=== PATIENT | female | born 1970 | race Caucasian/White ===

== ENCOUNTER 2023-10-16 19:51 | Emergency (ER) | payer OTHER, SELFPAY ==
[2023-10-16 19:59] VITALS: BP 127/60
[2023-10-16 20:15] LABS: % Basophils 0.8 % (0-2); % Eosinophils 2.5 % (0-6); % Monocytes 5.7 % (1.7-9.3); Absolute Eosinophils 0.1 10^3/uL (0-0.7); Absolute Lymphocytes 2.7 10^3/uL (1.2-3.4); Absolute Monocytes 0.3 10^3/uL (0.1-0.6); Hematocrit 38.7 % (37.0-47.0); Hemoglobin 13.7 g/dL (12.0-16.0); Mean Corp Hgb Conc. 35.4 g/dL (33.0-37.0); Mean Corpuscular Hgb 31.2 pg (27.0-31.0); Mean Corpuscular Volume 88.2 fL (81.0-99.0); Mean Platelet Volume 10.7 fL (7.4-10.4); Nucleated Red Blood Cells % 0 %; Platelet Count 162 10^3/uL (130-400); Red Blood Cell Count 4.39 10^6/uL (4.20-5.40); Red Cell Dist. Width 12.3 % (11.5-14.5); White Blood Cell Count 5.1 10^3/uL (4.8-10.8)
[2023-10-16 20:31] LABS: HCG, Serum Qualitative Screen Negative
[2023-10-16 20:36] LABS: ALT (SGPT) 18 U/L (0-35); AST (SGOT) 24 U/L (14-36); Albumin 4.2 g/dl (3.5-5.0); Alkaline Phosphatase 69 U/L (38-126); Blood Urea Nitrogen 16 mg/dl (7-17); Calcium 9.6 mg/dl (8.4-10.2); Carbon Dioxide 26 mmol/L (22-30); Chloride 103 mmol/L (98-107); Glucose 95 mg/dl (70-99); Potassium 3.5 mmol/L (3.5-5.1); Sodium 138 mmol/L (135-145); Total Bilirubin 0.7 mg/dl (0.2-1.3); Total Protein 6.9 g/dl (6.3-8.2); eGFR > 60.00
[2023-10-16 20:45] LABS: Troponin I < 0.012 ng/ml
[2023-10-16 21:05] VITALS: BMI 21.9
[2023-10-16 21:07] VITALS: BP 115/74
--- NOTE | 2023-10-16 21:39 | ED.GENMED ---
History of Present Illness
General
Chief Complaint: Chest Pain
Source: patient
Exam Limitations: none
Time Seen by Provider: 10/16/23 20:58
Nursing documentation reviewed up to this point in time: agreed with
Travel History
Have you had any contact with someone who has COVID-19?: No
Do you have any symptoms of coronavirus? Fever > 100 degrees, chills, cough, shortness of breath, sore throat, loss of taste or smell, muscle aches, or headache?: No
History of Present Illness
History of Present Illness:
52-year-old female with 3 weeks of palpitations and irregular heartbeats, initially no chest pain or shortness of breath no syncope, takes no meds, she tells me she had Derick's as a teenager had a heart attack at age 37 all of which is improved
with natural diet she works at a [employer] facility, she is been doing some deep breathing exercises with improvement in her symptoms, tonight had some pressure across her chest, also tells me she had lupus earlier in life, she had
saline breast implants that were removed years ago,
Has been feeling fine since has been here, no episodes of irregular heartbeats
Past History
Past History
ED Past Medical History: CAD, Hypothyroidism and Other (Lupus earlier in life)
ED Past Surgical History: Other (She had saline breast implants removed years ago)
Social History
Tobacco: Non-smoker
Alcohol: None
Drug: None
Personal:
Living: with family
Employment: Employed
Review of Systems
Review of Systems
All Other Systems: Not applicable
Constitutional: Reports fatigue; Denies fever
EENT: Reports no symptoms
Respiratory: Denies cough or trouble breathing
Cardiac: Reports chest pain and palpitations; Denies diaphoresis or syncope
ABD/GI: Reports no symptoms
: Reports no symptoms
Musculoskeletal: Reports no symptoms
Skin: Reports no symptoms
Neurological: Reports dizzy and weakness
Psychiatric: Reports anxiety; Denies depression, suicidal or hallucinations
Phy Exam
Physical Exam
Physical Exam:
Physical Exam
General: no apparent distress, not acutely ill
Neck: No jaundiced no obvious goiter
Heart: s1/s2 regular rate and rhythm, no murmur. equal radial pulses.
Lungs: no acute respiratory distress. clear bilaterally
Abdomen: Not tender
Neuro: alert and oriented. no focal neurological deficits
Skin: no rash
Psychiatric: well kept. interactive and cooperative
Extremities: no edema. no calf tenderness.
Scores
Heart Score for Chest Pain Patients
STEMI patient?: No
History: Slightly or Non-Suspicious
ECG: Normal
Age: </= 45 years
Risk Factors: >/= 3 Risk Factors or History of CAD
Troponin: </= Normal Limit
Heart Score for Chest Pain Patients: 2
Heart Score Risk: 2.5% MACE over next 6 weeks
Course
Orders/Labs/Results
Orders:
Orders
10/16/23 19:52
Electrocardiogram (*1) Urgent
Reason for Study: Chest Pain
Cardiac Monitoring- Treatment ONCE
EKG- Treatment ONCE
IV Insert/Care/Rem.- Treatment PRN
Test Result ONCE
O2 Therapy [RESP] Urgent
Titrate/Wean O2 to maintain O2 sat greater than (%): 90
Special Instructions: Maintain sats >/=90%
Pulse Ox/spot Check [RESP] Urgent
Quantity: 1
Special Instructions: ON ROOM AIR
10/16/23 20:03
Complete Blood Count/With Diff Urgent
Comprehensive Metabolic Panel Urgent
HCG, Serum Qualitative Screen Urgent
TSH Urgent
Comment: ADD ON
Troponin I Urgent
10/16/23 21:19
Add On- LAB Urgent
Tests Added?: tsh
Abnormal Lab Results
10/16/23
20:03
MCH 31.2 H pg
(27.0-31.0)
MPV 10.7 H fL
(7.4-10.4)
Neutrophils % 39.0 L %
(42.2-75.2)
Lymphocytes % 52.0 H %
(20.5-51.1)
Creatinine 0.5 L mg/dL
(0.6-1.0)
10/16/23 20:03
10/16/23 20:03
Vital Signs
Initial and Last Documented VS:
Initial Vital Signs
Temp Pulse Resp BP Pulse Ox
98.2 F 75 19 127/60 99
10/16/23 19:59 10/16/23 19:59 10/16/23 19:59 10/16/23 19:59 10/16/23 19:59
Last Documented Vital Signs
Temp Pulse Resp BP Pulse Ox
98.2 F 63 11 115/74 98
10/16/23 19:59 10/16/23 21:45 10/16/23 21:45 10/16/23 21:07 10/16/23 21:45
MDM/Problems Addressed
Differential Diagnosis Includes:
Arrhythmia sinus arrhythmia electrolyte abnormality thyroid abnormality doubt PE or ACS by history physical anxiety and would be diagnosis of exclusion
MDM/Problems Addressed:
Palpitation
Chronic conditions affecting care:
Prior history of lupus Derick's and CAD
Acute Exacerbation and/or Progression of Chronic Illness:
Prior history of Derick's lupus CAD
*Pulse Oximetry
Patient hypoxic: no
*EKG
Interpreted by ED Provider?: Yes
Interpretation: normal
Comparison EKG: no comparison EKG present
Heart Rate: 70
Rate: normal
Rhythm: sinus
Ischemia: non-specific ST changes
*Manager Quantitative Interpretation
Rate: normal and bradycardiac
Interpretation: normal
Heart Rate: 70
Rhythm: sinus
*Critical Care Note
Total Time (30-74mins, 75-104mins- exclusive of procedures): Not Applicable
Update Note
Update Note:
9:[address] Jimenez from 2007 reviewed
ED Attending Note
-
Portions of this chart may have been created with voice recognition software.� Occasional wrong word or��sound alike� substitutions may have occurred due to the inherent limitations of voice recognition software.
Discharge Plan
Departure
Patient Disposition: Home (Routine Discharge)
Date of Disposition: 10/16/23
Time of Disposition: 22:07
Patient with high blood pressure during this ER visit?: No
Condition: Good
Discharge Problem:
Heart palpitations, Chest pain
Instructions: Chest Pain DCA Follow Up
Referrals:
Galdino Anne MD [Family Provider] -
Stephen Ryan MD [Active] - Next open appointment
Interventions
Interventions:
*Risk Screen - Suicide Last Done: 10/16/23 19:59
*General Assessment Last Done: 10/16/23 19:59
*Neglect/Abuse Screening Last Done: 10/16/23 19:59
ED- Fall Risk Assessment Last Done: 10/16/23 21:06
*ED COVID-19 Vaccine History Last Done: 10/16/23 19:59
*Nursing Disposition Last Done: 10/16/23 22:15
ED- Cardiac Assessment Last Done: 10/16/23 21:06
Discharge Date and Time
Discharge Date/Time: 10/16/23 22:15
Print Language: STATELESS
[2023-10-16 22:32] LABS: TSH 2.77 uIU/ml (0.47-4.68)
== END 2023-10-16 22:15 | disposition home or self-care (01) ==
LOC: EMR 19:51
PROVIDERS: Emergency Medicine; EMERGENCY PHYSICIAN Emergency Medicine; FAMILY PHYSICIAN Family Medicine
DX: R07.9 Chest pain, unspecified (principal); R00.2 Palpitations; R06.02 Shortness of breath; R42 Dizziness and giddiness; R53.1 Weakness; F41.9 Anxiety disorder, unspecified; I25.10 Atherosclerotic heart disease of native coronary artery without angina pectoris; E03.9 Hypothyroidism, unspecified; M32.9 Systemic lupus erythematosus, unspecified; I25.2 Old myocardial infarction; Z88.8 Allergy status to other drugs, medicaments and biological substances
CPT/HCPCS: 99283; 94760; 80053; 84443; 84484; 84703; 85025; 93005

== ENCOUNTER → 2023-11-12 08:57 | Outpatient (REF) | payer OTHER, SELFPAY | LOC: HWRCS 08:57 | PROVIDERS: ATTENDING PHYSICIAN Internal Medicine Cardiovascular Disease; FAMILY PHYSICIAN Physician Assistant | DX: R00.2 Palpitations (principal) | CPT/HCPCS: 93306 ==

== ENCOUNTER → 2023-11-29 10:29 | Outpatient (REF) | payer OTHER, SELFPAY | LOC: RCS 10:29 | PROVIDERS: ATTENDING PHYSICIAN Internal Medicine Cardiovascular Disease; FAMILY PHYSICIAN Physician Assistant | DX: R07.89 Other chest pain (principal); R94.31 Abnormal electrocardiogram [ECG] [EKG]; R00.2 Palpitations | CPT/HCPCS: 93017; 93350 ==

== ENCOUNTER → 2024-10-14 13:17 | Outpatient (REF) | payer OTHER, SELFPAY | LOC: WDC 13:17 | PROVIDERS: ATTENDING PHYSICIAN Nurse Practitioner Adult Health; FAMILY PHYSICIAN Physician Assistant | DX: Z12.31 Encounter for screening mammogram for malignant neoplasm of breast (principal) | CPT/HCPCS: 77063; 77067 ==